=== PATIENT | female | born 1970 | race Caucasian/White ===

== ENCOUNTER → 2016-12-15 | Outpatient (CLI) | payer BC ==
[~2016-12-15] MED LIST: CIPR-255 PO; EFF/375 PO; HYDR-3419 PO; NORT25CA PO; SERT-234 PO; ZOLM1TAB3 PO
--- NOTE | 2016-12-15 14:08 | DIAGNOSTIC IMAGING REPORT ---
CT SCAN OF THE ABDOMEN AND PELVIS WITHOUT IV CONTRAST CLINICAL HISTORY: Horseshoe kidney. Preoperative assessment. COMPARISON STUDY: No priors. TECHNIQUE: CT scan of the abdomen and pelvis is performed from the lung bases to the proximal femora. Images are reviewed in the axial, sagittal, and coronal planes. IV contrast was not administered for this examination. Automated dose control exposure was utilized. CT DOSE: 683.86 mGy.cm FINDINGS: Lung bases: The heart is normal in size and without pericardial effusion. The lung bases are clear. Liver: The unenhanced liver is enlarged, measuring 22.3 cm in length. The liver demonstrates diminished attenuation suggesting hepatic steatosis. Fatty sparing is seen adjacent to the gallbladder fossa. There is no intrahepatic biliary ductal dilatation. Gallbladder: Unremarkable. Spleen: Normal in size and attenuation. Pancreas: Unremarkable. Adrenal glands: Unremarkable. Kidneys: The unenhanced kidneys are normal in size and without hydronephrosis. There is a thin fibrous band which appears to connect in the lower poles of the kidneys. This is seen on the right kidney on axial image #236, crosses midline as seen on image #20 and 51, and was attached the lower pole of the left kidney as seen on axial image #228. The appearance suggests a horseshoe kidney with a thin fibrous isthmus. There is no cortical collection. The kidneys are located somewhat inferiorly within the renal fossa and are rotated. There is a punctate nonobstructing right renal calculus. No left-sided renal calculi are identified. There is no evidence of contour deforming renal mass lesion. Abdominal vasculature: The abdominal aorta is normal in course and caliber. Bowel: The small bowel and colon are normal in course and caliber. The appendix is well-visualized and normal. Peritoneum: There is no intraperitoneal free air or abdominal ascites. Lymphadenopathy: None. Pelvic viscera: The bladder, uterus, and adnexa are normal as visualized. There are bilateral ovarian follicles. Skeletal structures: No lytic or blastic lesions are seen. IMPRESSION: 1. There is a thin band seen connecting the lower poles of both kidneys, likely representing horseshoe kidney with a thin fibrous isthmus. Symmetric lower pole accessory renal vessels are considered much less likely. There is no cortical connection seen between the renal moieties. 2. There is a punctate nonobstructing right renal calculus. 3. No acute infectious or inflammatory findings are identified in the abdomen or pelvis. 4. Hepatomegaly and hepatic steatosis. Electronically signed by: Tavares Sal M.D. 12/15/2016 2:06 PM Dictated Date/Time: 12/15/2016 1:49 PM
== END | disposition home or self-care (01) ==
LOC: C.CTS 12:41 → MERGE 13:40
PROVIDERS: ATTEND Urology
DX: Q63.1 Lobulated, fused and horseshoe kidney (principal); R20.0 Anesthesia of skin; K76.0 Fatty (change of) liver, not elsewhere classified

== ENCOUNTER 2016-12-29 05:26 | Observation (INO) | payer BC, OTHER ==
[2016-12-15 11:47] VITALS: BMI 31.0
--- NOTE | 2016-12-15 12:04 | PAT Medication Instructions ---
Service Date Dec 15, 2016. Current Home Medication List Nortriptyline (Pamelor), 25 MG PO HS Sertraline (Zoloft), 100 MG PO HS Venlafaxine Hcl (Effexor), 12.5 MG PO QAM Zolmitriptan (Zomig), 5 MG PO PRN Medication Instructions For Your Scheduled Surgery - Take the following medications the morning of surgery with a sip of water OTHERWISE NOTHING TO EAT OR DRINK AFTER MIDNIGHT: Venlafaxine Hcl (Effexor), 12.5 MG PO QAM Zolmitriptan (Zomig), 5 MG PO PRN - Take the following medications as scheduled the night before surgery: Nortriptyline (Pamelor), 25 MG PO HS Sertraline (Zoloft), 100 MG PO HS Zolmitriptan (Zomig), 5 MG PO PRN If you have any questions please call us at [phone] or [phone] or [phone]
[2016-12-15 12:58] LABS: BASO % 0.2 %; BASO ABS # 0.01 K/uL (0-0.2); COMPLETE YES; EOS % 0.6 %; IG% 0.3 %; LYMPH % 33.7 %; LYMPH ABS # 2.23 K/uL (1.2-3.4); MEAN CELL VOLUME 85.1 fL (80-100); MEAN CORPUSCULAR HEMOGLOBIN 28.7 pg (25-34); MEAN CORPUSCULAR HGB CONC 33.8 g/dl (32-36); MEAN PLATELET VOLUME 9.5 fL (7.4-10.4); MONO % 8.5 %; NEUT % 56.7 %; PLATELET COUNT 238 K/uL (130-400); RED BLOOD COUNT 5.29 M/uL (4.2-5.4); WHITE BLOOD COUNT 6.62 K/uL (4.8-10.8)
[2016-12-15 13:08] LABS: URINE APPEARANCE CLEAR (CLEAR); URINE BILIRUBIN NEG (NEG); URINE COLOR YELLOW; URINE EPITHELIAL CELL AUTO 20-30 /lpf (0-5); URINE NITRITE NEG (NEG); URINE PH 6.5 (4.5-7.5); URINE SPECIFIC GRAVITY 1.017 (1.000-1.030); UROBILINOGEN NEG (NEG)
[2016-12-15 13:29] LABS: MANUAL MICROSCOPIC REQUIRED? NO; REVIEW REQ? NO
[2016-12-15 14:34] LABS: CALCIUM 8.8 mg/dl (8.5-10.1)
[2016-12-15 14:37] LABS: BUN/CREATININE RATIO 14.3 (10-20); CREATININE 0.88 mg/dl (0.60-1.20)
[~2016-12-29] VITALS: Ht 167.6 cm; Wt 88.8 kg
[2016-12-29] VITALS (16 sets, daily range): BP systolic 100–151; BP diastolic 51–85; PULSE 78–101; TEMP 36.3–37.2; O2SAT 92–100; Ht 167.6 cm; Wt 88.8 kg
[~2016-12-29 05:26] MED LIST changes: -CIPR-255 PO; -HYDR-3419 PO
[2016-12-29] MEDS ORDERED: CIPROFLOXACIN / D5W 400 MG IV SCH (06:00)
[2016-12-29] MEDS ORDERED: SCOPOLAMINE 1.5 MG TDSY TD ONE (06:33)
[2016-12-29] MEDS: LACTATED RINGER'S 1000ML 1,000 ML IV SCH ×2 (06:35→11:44)
[2016-12-29] MEDS ORDERED: NURSING VERBAL MED ORDER ONE ×3 (06:45→19:45)
[2016-12-29] MEDS ORDERED: LIDOCAINE HCL 2% 2 ML VIAL (20MG/ML) ONE (06:47)
[2016-12-29] MEDS ORDERED: MIDAZOLAM HCL 1 MG/ML 2ML VIAL ONE (06:47)
[2016-12-29] MEDS ORDERED: FENTANYL CITRATE INJ 50 MCG/1 ML 2 ML VIAL ONE ×2 (06:47→08:03)
[2016-12-29] MEDS ORDERED: PROPOFOL IV EMULSION 10 MG/ML 20 ML VIAL IV ONE (06:47)
[2016-12-29] MEDS ORDERED: LIDO 2%/EPINEPHRINE 1:100000 20 ML VIAL INFIL ONE (06:53)
[2016-12-29] MEDS ORDERED: PREMARIN VAG CRM 14 APPLN/30 GM TUBE ONE (06:54)
[2016-12-29] MEDS ORDERED: BACITRACIN 50000 UNIT VIAL ONE (06:55)
[2016-12-29] MEDS ORDERED: ATROPINE SULFATE 0.1 MG/ML 5ML SYR IV PRN (07:00)
[2016-12-29] MEDS ORDERED: FENTANYL CITRATE INJ 50 MCG/1 ML 2 ML VIAL IV PRN (07:00)
[2016-12-29] MEDS ORDERED: EpHEDrine SULFATE INJ 50 MG/ML AMP IV PRN (07:00)
[2016-12-29] MEDS ORDERED: ONDANSETRON INJ 2 MG/ML 2 ML VIAL IV PRN ×2 (07:00→16:15)
--- NOTE | 2016-12-29 07:21 | History & Physical Bridge Note ---
H&P Re-Evaluation Bridge Note: I have examined the patient, reviewed the History & Physical and in the interval since the performance of the History & Physical I have noted the following changes of clinical significance: No changes noted
[2016-12-29] MEDS ORDERED: DEXAMETHASONE SOD INJ 4 MG/ML VIAL ONE (07:54)
[2016-12-29] MEDS ORDERED: ONDANSETRON INJ 2 MG/ML 2 ML VIAL ONE (07:54)
[2016-12-29] MEDS ORDERED: GLYCOPYRROLATE INJ 0.2 MG/ML VIAL ONE (07:54)
--- NOTE | 2016-12-29 08:23 | [facility] Post Operative Brief Note ---
Immediate Operative Summary Operative Date Dec 29, 2016. Pre-Operative Diagnosis Female Stress Incontinence Post-Operative Diagnosis Female Stress Incontinence Procedure(s) Performed Mid-Urethral Sling Surgeon Dr. Wayne Code Enforcement Officer Surgeon(s) none Estimated Blood Loss 25 mL Findings As per dictation Specimens none per surgeon Drains Moreno Anesthesia Gen. Complication(s) None Disposition Recovery Room / PACU
--- NOTE | 2016-12-29 08:29 | [facility] Operative Report ---
Operative Report Operative Date Dec 29, 2016. Pre-Operative Diagnosis Female Stress Incontinence Post-Operative Diagnosis Female Stress Incontinence Procedure(s) Performed Mid-Urethral Sling Surgeon Dr. Wayne Inspector Water Pollution Control Surgeon(s) none Estimated Blood Loss 25 mL Findings Stress urinary incontinence [employer] advantage fit Reference number [id number] Lot #[id number] Specimens none per surgeon Drains Moreno Anesthesia Gen. Complication(s) None Disposition Recovery Room / PACU Indications Stress urinary incontinence Description of Procedure Catarina Walters was identified in the preoperative holding area appropriate informed consent reviewed and completed and the patient was transported to the operating suite. Upon arrival she received appropriate preoperative antibiotics of ciprofloxacin. She was placed in dorsal lithotomy position where she was sterilely prepped and draped in standard fashion. A Moreno catheter was placed. An Allis clamp was placed just adjacent to the balloon of the Moreno catheter and the bladder neck. A second Allis clamp was placed adjacent to the urethral meatus. Lidocaine was used to hydrodissect this area, lidocaine was additionally used to dissect laterally into the sulcus. A midline incision of approximately 1 cm was then made in the mid urethra. Using Metzenbaum scissors I dissected just under the vaginal mucosa laterally to the right and left in the sulcus. After palpating the underside of the pubic arch I concluded this portion of the dissection. I I then marked exit incisions just lateral to the midline over the pubic symphysis. Each of these incisions approximately 1 cm from the midline, and both were made below the hairline. I then emptied the bladder and passed the right arm of the [employer] advantage-fit urethral sling. This entered through the vaginal incision and exited through the superior incision on the right. I repeated the same procedure on the left. Following passage of these, I withdrew the catheter and performed cystoscopy. I felt that the right arm was passing too close to the bladder. I subsequently withdrew this arm, replaced a Moreno catheter, and after confirming emptying of the bladder every passed the right arm. Repeat cystoscopy revealed a much better position. I then tensioned the sling over a pair of Metzenbaum scissors. The midline tab was excised and final positioning achieved. Sling was laying appropriately just against the back side of the urethra. I trimmed the superior aspect of this sling below the skin line. These incisions were closed with Dermabond. The midline vaginal incision was closed with a running 0 Vicryl stitch. Moreno catheter was left in place. Vaginal packing with Premarin cream was placed in the vaginal vault. The case was subsequently concluded the patient was extubated and taken to the PACU in stable condition. I attest to the content of the Intraoperative Record and any orders documented therein. Any exceptions are noted below.
[2016-12-29] MEDS ORDERED: ACETAMINOPHEN 325 MG TAB PO PRN ×2 (08:30→16:15)
[2016-12-29] MEDS ORDERED: OXYCODONE/ACETAMINOPHEN 5-325 TAB PO PRN ×4 (08:30→16:15)
[2016-12-29] MEDS ORDERED: HYDR-3419 PO (08:32)
[2016-12-29] MEDS ORDERED: CIPR-255 PO (08:32)
[2016-12-29] MEDS ORDERED: PHENYLEPHRINE 100MCG/ML 5ML SYR ONE (08:33)
--- NOTE | 2016-12-29 08:38 | Discharge Instructions ---
Discharge Instructions Date of Service Dec 29, 2016. Admission Reason for Admission: Female Stress Incontinence Discharge Discharge Diagnosis / Problem: stress urinary incontinence Discharge Goals Goal(s): Decrease discomfort, Improve function, Increase independence, Improve disease control, Prevent Disease Progression Activity Recommendations Activity Limitations: per Instructions/Follow-up section Lifting Limitations: no more than 25 pounds, until after follow-up appointment Exercise/Sports Limitations: until after follow-up appointment (no strenuous sports (running, weight lifting)) May Resume Sexual Activity: after follow-up appointment (4-6 weeks) Shower/Bathe: tomorrow Driving or Machine Use: resume 1 day after discharge (as long as you are off of pain medications) Please avoid placing anything inside the vagina for the next 4 weeks (no tampons , sex, etc) . Instructions / Follow-Up Instructions / Follow-Up Please keep your previously scheduled follow up appointment. Discharge Diet Recommended Diet: Regular Diet Procedures Procedures Performed: Mid-Urethral Sling Pending Studies Studies pending at discharge: no Medical Emergencies . Who to Call and When: Medical Emergencies: If at any time you feel your situation is an emergency, please call 911 immediately. . Non-Emergent Contact Non-Emergency issues call your: Urologist Call Non-Emergent contact if: you have a fever, temperature is above 101.5, your pain is not controlled, your pain is worsening . . "Provider Documentation" section prepared by Lui Beltre. . VTE Core Measure Inpt VTE Proph given/why not?: Treatment not indicated [place] Drug Monitoring Program Search Results: patient reviewed within database, no issues identified
[2016-12-29] MEDS ORDERED: SODIUM CHLORIDE 0.9% 1000ML 1,000 ML IV SCH (09:00)
--- NOTE | 2016-12-29 09:07 | Anesthesiology Progress Note ---
Anesthesia Post Op Note Date & Time Dec 29, 2016 at 09:07 Vital Signs Pain Intensity: 0 Vital Signs Past 12 Hours Date Time Temp Pulse Resp B/P (MAP) Pulse Ox O2 Delivery O2 Flow Rate FiO2 12/29/16 09:05 36.3 106 18 126/86 94 Room Air 12/29/16 08:55 105 16 115/88 97 Room Air 12/29/16 08:45 110 16 135/84 99 Oxymask 3 12/29/16 08:35 113 18 146/100 99 Oxymask 5 12/29/16 08:29 36.6 111 22 154/94 99 Oxymask 5 12/29/16 05:50 36.8 89 18 151/85 (107) 96 Room Air Notes Mental Status: alert / awake / arousable, participated in evaluation Pt Amnestic to Procedure: Yes Nausea / Vomiting: adequately controlled Pain: adequately controlled Airway Patency, RR, SpO2: stable & adequate BP & HR: stable & adequate Hydration State: stable & adequate Anesthetic Complications: no major complications apparent
[2016-12-29] MEDS ORDERED: PROMETHAZINE HCL INJ 12.5 MG in SODIUM CHLORIDE 0.9% 50ML 50 ML IV ONE (10:45)
[2016-12-29] MEDS ORDERED: KETOROLAC TROMETHAMINE 30 MG/ML VIAL ONE (14:35)
[2016-12-29] MEDS ORDERED: KETOROLAC TROMETHAMINE 30 MG/ML VIAL IV. ONE (14:45)
[2016-12-29] MEDS ORDERED: LACTATED RINGER'S 1000ML 1,000 ML IV SCH (16:06)
--- NOTE | 2016-12-29 16:06 | Progress Note ---
Progress Note Date of Service Dec 29, 2016. Progress Note Patient is status post mid urethral sling earlier today, and had fairly significant postoperative nausea. She additionally had urinary retention postoperatively and had a Moreno catheter placed. Her overall status seems to be improving steadily however we admitted decision to keep her in-house overnight for observation.
[2016-12-29] MEDS ORDERED: IV FLUIDS COMPLETED PRN (17:15)
[2016-12-29] MEDS ORDERED: NORTRIPTYLINE HCL 25 MG CAP PO SCH (21:00)
[2016-12-29] MEDS ORDERED: SERTRALINE HCL 100 MG TAB PO SCH (21:00)
[2016-12-30 03:00] VITALS: BP 108/68; PULSE 91; TEMP 36.9; O2SAT 94
--- NOTE | 2016-12-30 07:32 | Progress Note ---
Subjective Date of Service: Dec 30, 2016. Subjective Pt evaluation today including: conversation w/ patient, chart review Voiding: rice catheter in place (patent, draining clear, yellow urine) 46 yo female s/p mid-urethral sling placement. Admitted for nausea and UR. Rice catheter in place draining clear, yellow urine this morning. The pt c/o some suprapubic pain this morning. N/V have resolved. Tolerating PO. Review of Systems Constitutional: No fever, No chills Respiratory: No shortness of breath Cardiac: No chest pain Abdomen: No pain, No nausea, No vomiting Female : No dysuria, No hematuria Heme: No abnormal bleeding/bruising Objective Vital Signs Date Time Temp Pulse Resp B/P (MAP) Pulse Ox O2 Delivery O2 Flow Rate FiO2 12/30/16 03:00 36.9 91 16 108/68 (81) 94 Room Air 12/30/16 00:00 Room Air 12/29/16 23:06 37.1 83 18 100/59 (73) 94 Room Air 12/29/16 20:31 36.8 81 18 126/80 (95) 93 Room Air 12/29/16 19:30 37.1 96 18 127/71 (89) 93 Room Air 12/29/16 18:30 36.9 96 18 116/77 (90) 93 Room Air 12/29/16 18:01 36.8 96 20 107/71 (83) 93 Room Air 12/29/16 17:35 37.2 78 20 136/80 Room Air 12/29/16 17:30 Room Air 12/29/16 17:30 37.2 78 18 136/80 (98) 92 Room Air 12/29/16 17:30 Room Air 12/29/16 17:15 37.1 92 18 114/69 98 Room Air 12/29/16 15:45 37.2 85 18 116/66 97 Room Air 12/29/16 14:15 36.7 99 20 114/64 98 Room Air 12/29/16 12:15 36.7 95 18 132/70 96 Room Air 12/29/16 11:20 36.4 98 16 104/65 100 Room Air 12/29/16 10:47 93 16 100/65 96 Room Air 12/29/16 10:00 95 12 102/51 96 Room Air 12/29/16 09:10 36.3 101 18 120/78 100 Room Air 12/29/16 09:05 36.3 106 18 126/86 94 Room Air 12/29/16 08:55 105 16 115/88 97 Room Air 12/29/16 08:45 110 16 135/84 99 Oxymask 3 12/29/16 08:35 113 18 146/100 99 Oxymask 5 12/29/16 08:29 36.6 111 22 154/94 99 Oxymask 5 Physical Exam General Appearance: no apparent distress Eyes: normal inspection ENT: hearing grossly normal Neck: no JVD Respiratory/Chest: no respiratory distress, no accessory muscle use Cardiovascular: no JVD Extremities: normal inspection Neurologic/Psychiatric: alert, normal mood/affect, oriented x 3 Skin: normal color Assessment and Plan POD #1 s/p mid-urethral sling AFVSS. N/V resolved. Will attempt a trial of void this morning. Encourage ambulation to hallway. Encourage use of IS. Pt OK for d/c home once she voids. F/u with Dr. Wayne as scheduled.
--- NOTE | 2016-12-30 07:33 | Progress Note ---
Progress Note Date of Service Dec 30, 2016. Progress Note S: Patient progress well overnight. No continued nausea or vomiting. Pain is well controlled. Full catheter in place draining clear urine. O: Vital Signs Past 12 Hours Date Time Temp Pulse Resp B/P (MAP) Pulse Ox O2 Delivery O2 Flow Rate FiO2 12/30/16 03:00 36.9 91 16 108/68 (81) 94 Room Air 12/30/16 00:00 Room Air 12/29/16 23:06 37.1 83 18 100/59 (73) 94 Room Air 12/29/16 20:31 36.8 81 18 126/80 (95) 93 Room Air NAD AAOx3 no resp distress abd soft - mild bruising around the suprapubic site - mild tenderness on the right > left A/P: Postoperative day 1 status post mid urethral sling Progressing appropriately Voiding trial Plan for DC home later this morning
[2016-12-30 08:28] VITALS: BP 110/58; PULSE 82; TEMP 36.5; O2SAT 95
[2016-12-30 08:34] VITALS: O2SAT 95
--- NOTE | 2016-12-30 08:44 | Anesthesiology Progress Note ---
Anesthesia Post Op Note Date & Time Dec 30, 2016 at 08:44 Vital Signs Pain Intensity: 2.0 Vital Signs Past 12 Hours Date Time Temp Pulse Resp B/P (MAP) Pulse Ox O2 Delivery O2 Flow Rate FiO2 12/30/16 08:34 95 Room Air 12/30/16 08:28 36.5 82 15 110/58 (75) 95 Room Air 12/30/16 03:00 36.9 91 16 108/68 (81) 94 Room Air 12/30/16 00:00 Room Air 12/29/16 23:06 37.1 83 18 100/59 (73) 94 Room Air Notes Mental Status: alert / awake / arousable, participated in evaluation Pt Amnestic to Procedure: Yes Nausea / Vomiting: adequately controlled Pain: adequately controlled Airway Patency, RR, SpO2: stable & adequate BP & HR: stable & adequate Hydration State: stable & adequate Anesthetic Complications: no major complications apparent
[2016-12-30] MEDS ORDERED: VENLAFAXINE HCL 37.5 MG TAB PO SCH (09:00)
[2016-12-30 11:22] VITALS: BP 110/58; PULSE 82; TEMP 36.5; O2SAT 95
--- NOTE | 2017-01-05 12:46 | Discharge Summary ---
Discharge Summary Date of Service Jan 05, 2017. Discharge Summary Admission Date: Dec 29, 2016 at 05:42 Discharge Date: Dec 29, 2016 Discharge Disposition: Home Principal Diagnosis: Stress urinary incontinence Procedures: Mid urethral sling Medication Reconciliation New Medications: Ciprofloxacin Hcl (Cipro) 500 Mg Tab 500 MG PO BID, #6 TAB Hydrocodon/Acetaminophen 5MG/300MG (Vicodin (5MG/300MG)) 1 Tab Tab 2 TABS PO Q6H PRN for Pain, #30 TAB Continued Medications: Nortriptyline (Pamelor) 25 Mg Cap 25 MG PO HS, CAP Sertraline (Zoloft) 100 Mg Tab 100 MG PO HS, TAB Venlafaxine Hcl (Effexor) 37.5 Mg Tab 12.5 MG PO QAM, TAB Zolmitriptan (Zomig) 5 Mg Tab 5 MG PO PRN, TAB Hospital Course Patient admitted for a mid urethral sling secondary to stress urinary incontinence. Details of the procedure are as dictated previously and operative report. She was initially planned to be outpatient surgery however she had significant postoperative nausea. This has occurred previously insetting of anesthesia. I elected to keep her in-house overnight she improved throughout the course of the evening. She did ,however, have urinary retention and went home with a Moreno catheter in the morning of postoperative day #1. Total time spent on discharge = This includes examination of the patient, discharge planning, medication reconciliation, and communication with other providers. Discharge Instructions Please see previously written discharge instructions
== END 2016-12-30 12:30 | disposition home or self-care (01) ==
LOC: C.ACU 05:26 → C.MSW 05:42 → MERGE 14:11 → ENRESERV 16:49
PROVIDERS: ADMIT Urology; ATTEND Urology
DX: R11.0 Nausea (principal); R33.8 Other retention of urine; N39.3 Stress incontinence (female) (male); Q63.1 Lobulated, fused and horseshoe kidney; R32 Unspecified urinary incontinence; Z80.8 Family history of malignant neoplasm of other organs or systems; Z80.3 Family history of malignant neoplasm of breast; Z79.899 Other long term (current) drug therapy